=== PATIENT | female | born 1945 ===

== ENCOUNTER 2024-05-03 05:10 | Day surgery (SDC) | payer OTHER ==
[~2024-05-03 05:10] MED LIST: AZILECT1 MG PO; COMBIPATCH 0.01 EACH TD; COZAAR50 MG PO; DORZOLAMIDE HCL10 ML OP; NEUPRO1 EAC1 TOP; PEPCID40 MG PO; PRILOSEC OTC20 MG PO; TRAZODONE HCL50 MG PO; ZETIA10 MG PO; ZOCOR20 MG PO
[2024-05-03] MEDS ORDERED: CEFTRIAXONE SODIUM 2,000 MG VIAL IV ONE (08:15)
[2024-05-03] MEDS ORDERED: METRONIDAZOLE/SODIUM CHLORIDE 500 MG/100 ML PIGGYBACK IV ONE (08:15)
[2024-05-03] MEDS ORDERED: POVIDONE-IODINE 118 ML BOTT TOP ONE (08:15)
[2024-05-03] MEDS ORDERED: HEMOSTATIC MATRIX 1 KIT KIT TOP ONE (08:15)
[2024-05-03] MEDS ORDERED: DIBUCAINE 30 GM TUBE RECTAL ONE (08:30)
[2024-05-03] MEDS ORDERED: TAMSULOSIN HCL 0.4 MG CAP PO ONE (08:45)
[2024-05-03] MEDS ORDERED: OXYC1TAB9 PO (10:25)
== END 2024-05-03 13:10 | disposition home or self-care (01) ==
LOC: CIR.AMB 05:10
PROVIDERS: ATTEND Surgery
DX: D12.8 Benign neoplasm of rectum (principal); D12.9 Benign neoplasm of anus and anal canal; D37.5 Neoplasm of uncertain behavior of rectum; I10 Essential (primary) hypertension; E78.00 Pure hypercholesterolemia, unspecified; F03.90 Unspecified dementia, unspecified severity, without behavioral disturbance, psychotic disturbance, mood disturbance, and anxiety